=== PATIENT | male | born 1975 | race Hispanic/Latino ===

== ENCOUNTER 2017-02-23 14:56 | Emergency (ER) | payer OTHER ==
[2017-02-23 15:03] VITALS: BP 152/99; PULSE 68; RESP 18; TEMP 96.5; O2SAT 96
--- NOTE | 2017-02-23 15:52 | ED PDOC ---
HPI: Psych/Substance Abuse Time Seen by Provider: 02/23/17 15:12 Chief Complaint (Nursing): Psychiatric Evaluation Chief Complaint (Provider): Psychiatric Evaluation History Per: Patient Onset/Duration Of Symptoms: Days (x 4) Current Symptoms Are (Timing): Still Present Additional Complaint(s): Raimundo is a 41 year old male with a past medical history of PTSD who presents to the Emergency Department complaining of anxiety for the approximately 4 days. Patient claims he couldn't sleep and is anxious all the time. Patient claims he takes Lexapro 10 mg and Xanax 1 mg, but ran out out medications 4 days ago ( , February 19). Denies suicidal ideation, homicidal ideation, surgeries , and any other medical problems. PMD: [place] Past Medical History Reviewed: Historical Data, Nursing Documentation, Vital Signs Vital Signs: Last Vital Signs Temp 96.5 F L 02/23/17 15:01 Pulse 68 02/23/17 15:01 Resp 18 02/23/17 15:01 BP 152/99 H 02/23/17 15:01 Pulse Ox 96 02/23/17 15:01 - Medical History PMH: Post Traumatic Stress Disorder (12/22) - Surgical History Surgical History: No Surg Hx - Family History Family History: States: No Known Family Hx - Social History Current smoker - smoking cessation education provided: No Alcohol: None Drugs: Denies - Immunization History Hx Tetanus Toxoid Vaccination: No Hx Influenza Vaccination: No Hx Pneumococcal Vaccination: No - Allergies Allergies/Adverse Reactions: Allergies Allergy/AdvReac Type Severity Reaction Status Date / Time No Known Allergies Allergy Verified 02/23/17 15:01 Review of Systems ROS Statement: Except As Marked, All Systems Reviewed And Found Negative Psych: Positive for: Anxiety. Negative for: Suicidal ideation, Other ( Homicidal Ideation) Physical Exam - Reviewed Nursing Documentation Reviewed: Yes Vital Signs Reviewed: Yes - Physical Exam Appears: Positive for: Non-toxic, No Acute Distress Head Exam: Positive for: ATRAUMATIC, NORMOCEPHALIC Skin: Positive for: Normal Color, Warm, Dry Eye Exam: Positive for: EOMI, Normal appearance, PERRL Neck: Positive for: Normal, Supple Cardiovascular/Chest: Positive for: Regular Rate, Rhythm. Negative for: Murmur Respiratory: Positive for: Normal Breath Sounds. Negative for: Respiratory Distress Gastrointestinal/Abdominal: Positive for: Normal Exam, Soft. Negative for: Tenderness Back: Positive for: Normal Inspection Extremity: Positive for: Normal ROM Neurologic/Psych: Positive for: Alert, Oriented - ECG O2 Sat by Pulse Oximetry: 96 (RA) Pulse Ox Interpretation: Normal Medical Decision Making Medical Decision Making: Time: 15:52 Clinical Impressions: - PTSD - Anxiety - Crisis Evaluation - Emergency Refill until patient sees PCD. Patient claims has an appointment with PCD on Thursday. Patient cleared by crisis. Dx Anxiety Dr Joaquin [id number] Upon review of patients prescription record on [facility] website he has current prescription for codeine for 60 tablets and ambien 30 tablets both filled February 18. Patient's last rx for Xanax was filled on January 20 and 90 1mg tablets 1mg At this time it is unsafe for patient to be prescribed other controlled substances such as Xanax etc. _ Scribe Attestation Documented by Angélica Bryson acting as a scribe for Lisa Haddad MD. Provider Attestation All medical record entries made by the Scribe were at my direction and personally dictated by me. I have reviewed the chart and agree that the record accurately reflects my personal performance of the history, physical exam, medical decision making, and the department course for this patient. I have also personally directed, reviewed, and agree with the discharge instructions and disposition. Disposition - Clinical Impression Clinical Impression: Anxiety - Patient ED Disposition Is Patient to be Admitted: No Counseled Patient/Family Regarding: Studies Performed, Diagnosis - Disposition Referrals: [facility] [Outside] Disposition: Routine/Home Disposition Time: 18:10 Condition: GOOD Additional Instructions: Follow up with your PCP in 2-3 days. Instructions: Anxiety (ED) - POA Present On Arrival: None
== END 2017-02-23 18:26 | disposition left against medical advice (07) ==
LOC: H.ER 14:56
DX: F41.9 Anxiety disorder, unspecified (principal); F43.10 Post-traumatic stress disorder, unspecified